=== PATIENT | female | born 1955 | race Caucasian/White ===

== ENCOUNTER 2018-06-18 11:38 | Day surgery (SDC) | payer BC, OTHER ==
[~2018-06-18] VITALS: Ht 160 cm; Wt 87.6 kg
[2018-06-18 12:35] VITALS: Ht 160 cm; Wt 87.6 kg
[2018-06-18] MEDS ORDERED: METO-429 PO (12:58)
[2018-06-18] MEDS ORDERED: GABA300C16 PO (12:58)
[2018-06-18] MEDS ORDERED: PRAV20TA2 PO (12:58)
[2018-06-18] MEDS ORDERED: IBUP100T29 PO (12:58)
[2018-06-18] MEDS ORDERED: PRAM0.5T PO (12:58)
[2018-06-18] MEDS ORDERED: AMLO2.5T78 PO (12:58)
[2018-06-18] MEDS ORDERED: SERT50TA6 PO (12:58)
[2018-06-18] MEDS ORDERED: DIPH1TAB25 PO (12:58)
[2018-06-18] MEDS ORDERED: FENO150C2 PO (12:58)
[2018-06-18] MEDS ORDERED: LORA0.5T PO (12:59)
--- NOTE | 2018-06-18 13:02 | PREAC ---
Date/Time of Note Date/Time of Note DATE: 06/18/18 TIME: 13:01 Anesthesia Eval and Record Evaluation Time Pre-Procedure Interview DATE: 06/18/18 TIME: 13:01 Age 63 Sex female NPO: 8 hrs Preoperative diagnosis CHRONIC DIARRHEA Planned procedure COLONOSCOPY WITH BIOPSIES Past Medical History Past Medical History: Includes Cardio: HTN, Dyslipidemia Psych: Depression, Anxiety Surgery & Anesthesia Issues No known issue Meds Anticoagulation: No Beta Marsha within 24 hr: No Reason Beta Marsha not given: Pt. not on B-Marsha Reported Medications Lorazepam* (Lorazepam*) 0.5 Mg Tablet, 0.5 MG PO DAILY PRN for ANXIETY, TAB 06/18/18 Diphenoxylate HCl/Atropine (Diphenoxylate-Atrop 2.5-0.025) 1 Each Tablet, 1 EACH PO Q6 PRN for DIARRHEA, TAB 06/18/18 Fenofibrate* (Lipofen*) 150 Mg Capsule, 160 MG PO DAILY, TAB 06/18/18 Pravastatin Sodium (Pravastatin Sodium) 20 Mg Tablet, 40 MG PO DAILY, TAB 06/18/18 Ibuprofen (Ibuprofen Ib) 100 Mg Tab.chew, 800 MG PO TID PRN for PAIN AND/OR INFLAMMATION, TAB.CHEW 06/18/18 Metoprolol Tartrate* (Lopressor*) 50 Mg Tab, 50 MG PO BID, #60 TAB 06/18/18 Amlodipine Besylate* (Amlodipine Besylate*) 2.5 Mg Tablet, 5 MG PO DAILY, #30 TAB 06/18/18 Pramipexole* (Pramipexole*) 0.5 Mg Tablet, 0.5 MG PO HS, TAB 06/18/18 Sertraline Hcl* (Sertraline Hcl*) 50 Mg Tablet, 50 MG PO DAILY, #30 TAB 06/18/18 Gabapentin* (Gabapentin*) 300 Mg Capsule, 300 MG PO TID, #90 CAP 06/18/18 Meds reviewed: Yes Allergies Coded Allergies: No Known Allergy (Unverified , 06/18/18) Allergies Reviewed: Yes Labs/Studies Labs Reviewed: Reviewed by anesthesiologist test: N/A Pre-procedure Exam Airway: Adequate mouth opening, Adequate thyromental dist Mallampati: Mallampati II Teeth: Normal Lung: Normal Heart: Normal ASA Physical Status ASA physical status: 2 Emergency: None Planned Anesthetic General/MAC: MAC Planned Pain Management Parenteral pain med Pre-operative Attestations Prior to commencing anesthesia and surgery, the patient was re-evaluated, there was verification of: *The patient's identity *The results of appropriate recent lab work and preoperative vital signs *The above evaluation not changing prior to induction *Anesthetic plan, risk benefits, alternative and complications discussed with patient/family; questions answered; patient/family understands, accepts and wishes to proceed. Artem Marinelli M.D. June 18, 2018 13:02
[2018-06-18 13:23] VITALS: BP 122/55; PULSE 68; RESP 16
--- NOTE | 2018-06-18 14:34 | HPN ---
Date/Time of Note Date/Time of Note DATE: 06/18/18 TIME: 14:34 Interval H&P Admission Note Pt. seen H&P reviewed: No system changes KYREE AVILEZ June 18, 2018 14:34
--- NOTE | 2018-06-18 14:41 | PAC ---
Date/Time of Note Date/Time of Note DATE: 06/18/18 TIME: 14:41 Post-Anesthesia Notes Post-Anesthesia Note Last documented vital signs Vital Signs Date Temp Pulse Resp B/P (MAP) Pulse Ox O2 O2 Flow FiO2 Time Delivery Rate 06/18/18 98.5 68 16 122/55 93 Room Air 13:23 (77) Activity: WNL Respiratory function: WNL Cardiovascular function: WNL Mental status: Baseline Pain reasonably controlled: Yes Hydration appropriate: Yes Nausea/Vomiting absent: Yes Artem Marinelli M.D. June 18, 2018 14:41
[2018-06-18 14:51] VITALS: BP 134/63; PULSE 70; RESP 20
== END 2018-06-18 14:48 | disposition home or self-care (01) ==
LOC: GIL 11:38 → EDBD 14:30 → GIL 14:48
PROVIDERS: ATTEND Internal Medicine Gastroenterology
DX: K52.831 Collagenous colitis (principal); I10 Essential (primary) hypertension
CPT/HCPCS: 45380; 88305; Z7610